=== PATIENT | male | born 1950 | race Caucasian/White ===

== ENCOUNTER 2019-09-17 06:00 | Day surgery (SDC) | payer OTHER | END 2019-09-17 10:40 | disposition home or self-care (01) | LOC: AMB-ENDOS 06:00 | DX: K63.5 Polyp of colon (principal); K57.30 Diverticulosis of large intestine without perforation or abscess without bleeding; K64.1 Second degree hemorrhoids; K92.1 Melena ==

== ENCOUNTER 2020-06-09 08:38 | Day surgery (SDC) | payer OTHER | END 2020-06-09 13:40 | disposition home or self-care (01) | LOC: AMB-ENDOS 08:38 | PROVIDERS: ATTEND Colon & Rectal Surgery | DX: K29.60 Other gastritis without bleeding (principal); K21.0 Gastro-esophageal reflux disease with esophagitis; K44.9 Diaphragmatic hernia without obstruction or gangrene; Z20.828 Contact with and (suspected) exposure to other viral communicable diseases ==